=== PATIENT | male | born 1960 | race Hispanic/Latino ===

== ENCOUNTER 2017-02-18 16:47 | Emergency (ER) | payer MEDICARE, OTHER ==
[2017-02-18 17:18] VITALS: BMI 46.5
[2017-02-18 17:19] VITALS: BP 113/72; PULSE 88; RESP 18; TEMP 98.5; O2SAT 96
--- NOTE | 2017-02-18 17:48 | C.PDOC ---
History Of Present Illness 56 y/o male presents to ED with complaints of itchy rash on arm x 2 weeks. Notes its itchy, has not spread. No new lesions. No fever. Patient also concerned he got public lice from sexual partner. Notes he took 2 out uniform [employer] and reports itchy feeling worse at night. Notes he feels something crawling in the area. Patient denies penile discharge, testicular pain, sob, difficulty swallowing or any other complaints at this time. No known allergen. No medication taken. Time Seen by Provider: 02/18/17 17:27 Chief Complaint (Nursing): Abnormal Skin Integrity History Per: Patient History/Exam Limitations: no limitations Onset/Duration Of Symptoms: Days Current Symptoms Are (Timing): Still Present Quality Of Symptoms: Itching Past Medical History Reviewed: Historical Data, Nursing Documentation, Vital Signs Vital Signs: Last Vital Signs Temp 98.5 F 02/18/17 17:18 Pulse 88 02/18/17 17:18 Resp 18 02/18/17 17:18 BP 113/72 02/18/17 17:18 Pulse Ox 96 02/18/17 21:54 - Medical History PMH: Depression, Hypercholesterolemia Family History: States: Unknown Family Hx - Social History Hx Alcohol Use: No Hx Substance Use: No - Immunization History Hx Tetanus Toxoid Vaccination: No Hx Influenza Vaccination: Yes Hx Pneumococcal Vaccination: No Review Of Systems Except As Marked, All Systems Reviewed And Found Negative. Respiratory: Negative for: Shortness of Breath Genitourinary: Negative for: Penile Discharge, Penile Pain Musculoskeletal: Positive for: Hand Pain Skin: Positive for: Rash Physical Exam - Physical Exam Appears: Non-toxic, No Acute Distress Skin: Warm, Rash (Vesicles on erythematous base to bilateral forearms) Head: Atraumatic, Normacephalic Eye(s): bilateral: Normal Inspection, EOMI Nose: Normal Oral Mucosa: Moist Chest: Symmetrical Cardiovascular: Rhythm Regular Respiratory: Normal Breath Sounds, No Accessory Muscle Use Male Genital: No Testicular Tenderness, No Testicular Swelling, Other (No lice visualized. ) Neurological/Psych: Oriented x3, Normal Motor, Normal Sensation ED Course And Treatment O2 Sat by Pulse Oximetry: 96 (RA) Pulse Ox Interpretation: Normal Progress Note: Patient was instructed to follow up with physician/clinic in 1-2 days for further evaluation. Reevaluation Time: 17:30 Reassessment Condition: Improved Disposition - Disposition Disposition: HOME/ ROUTINE Disposition Time: 17:44 Condition: STABLE Additional Instructions: Follow up with primary medical doctor in 1-3 days without fail for further evaluation. Take medications as prescribed. Return to the emergency department at any time if symptoms persist or worsen. Prescriptions: DiphenhydrAMINE [Benadryl] 25 mg PO Q6 #20 cap Hydrocortisone 1% Cream [Cortizone 1% Cream] 1 appl TP TID #1 tube Permethrin 1% [Permethrin 1% Lotion] 1 ea EXT ONCE #2 bottle Instructions: Acute Rash (ED) - Clinical Impression Clinical Impression: Contact dermatitis, Pubic lice - Scribe Statement The provider has reviewed the documentation as recorded by the Chantelleibcarl Romero All medical record entries made by the Court were at my direction and personally dictated by me. I have reviewed the chart and agree that the record accurately reflects my personal performance of the history, physical exam, medical decision making, and the department course for this patient. I have also personally directed, reviewed, and agree with the discharge instructions and disposition.
== END 2017-02-18 17:54 | disposition home or self-care (01) ==
LOC: C.ER 16:47
DX: L25.9 Unspecified contact dermatitis, unspecified cause (principal); B85.3 Phthiriasis

== ENCOUNTER 2017-03-23 16:31 | Emergency (ER) | payer MEDICARE, OTHER ==
[2017-03-23 16:31] VITALS: BMI 46.5
[2017-03-23 16:44] VITALS: BP 142/92
--- NOTE | 2017-03-23 17:01 | C.PDOC ---
History Of Present Illness 56 y/o male presents to the ED for evaluation of an itchy rash to his bilateral forearms which began several days ago. Patient was evaluated in [facility] approx 1 month ago for similar symptoms, was discharged home with Hydrocortisone cream. He states he has had minimal relief from the cream and presents for further evaluation. Patient denies fever, chills, cough, shortness of breath, contact with known allergens (foods, new detergents) or possible contact with poison joycelyn. Time Seen by Provider: 03/23/17 16:47 Chief Complaint (Nursing): Abnormal Skin Integrity History Per: Patient History/Exam Limitations: no limitations Onset/Duration Of Symptoms: Days Current Symptoms Are (Timing): Still Present Location Of Injury: Right: Arm, Left: Arm Quality Of Symptoms: Itching Severity: Mild Additional History Per: Patient Past Medical History Reviewed: Historical Data, Nursing Documentation, Vital Signs Vital Signs: Last Vital Signs Temp 97.7 F 03/23/17 17:13 Pulse 69 03/23/17 17:13 Resp 18 03/23/17 17:13 BP 142/92 H 03/23/17 17:13 Pulse Ox 97 03/23/17 18:27 - Medical History PMH: Depression, Hypercholesterolemia Surgical History: No Surg Hx Family History: States: No Known Family Hx - Social History Hx Alcohol Use: No Hx Substance Use: No - Immunization History Hx Tetanus Toxoid Vaccination: No Hx Influenza Vaccination: Yes Hx Pneumococcal Vaccination: No Review Of Systems Except As Marked, All Systems Reviewed And Found Negative. Constitutional: Negative for: Fever, Chills Respiratory: Negative for: Cough, Shortness of Breath Skin: Positive for: Rash (itchy, to bilateral forearms ) Physical Exam - Physical Exam Appears: Well, Non-toxic, No Acute Distress Skin: Warm, Dry, Rash (b/l forearms: erythematous rash with small papules in a linear orientation. spares of interdigitary web spaces) Head: Normacephalic Eye(s): bilateral: Normal Inspection Oral Mucosa: Moist Tongue: Normal Appearing, No Swelling Lips: Normal Appearing, No Swelling Neck: Supple Cardiovascular: Rhythm Regular Respiratory: Normal Breath Sounds, No Rales, No Rhonchi, No Wheezing, Other ( speaking in full sentences) Extremity: Normal ROM, No Tenderness, Capillary Refill (< 2 seconds all digits ) , No Swelling Neurological/Psych: Oriented x3 Gait: Steady ED Course And Treatment O2 Sat by Pulse Oximetry: 97 (on RA) Pulse Ox Interpretation: Normal Progress Note: Patient received Benadryl PO, Pepcid PO, and Prednisone PO in ED. Reevaluation Time: 17:20 Reassessment Condition: Improved (On reassessment, patient is resting comfortably, showing no signs of respiratory distress and reports an improvement in his symptoms. Patient given Rxs for Benadryl PO, Permenthrin Cream (rash has appearance of possible scabies), and Prednisone PO. Patient instructed to follow up with dermatology aminata 1 week. He understands he should return to ED if symptoms worsen.) Disposition Counseled Patient/Family Regarding: Diagnosis, Need For Followup, Rx Given - Disposition Referrals: Silvino Denise MD [Staff Provider] - Disposition: HOME/ ROUTINE Disposition Time: 17:20 Condition: STABLE Additional Instructions: FOLLOW UP WITH YOUR DOCTOR IN 1-2 DAYS, AND WITH DERMATOLOGY WITHIN 1 WEEK USE MEDICATIONS DIRECTED RETURN TO ER IF SYMPTOMS WORSEN Prescriptions: DiphenhydrAMINE [Benadryl] 25 mg PO Q6 PRN #20 cap PRN Reason: Itching / Pruritus Permethrin 5% [Permethrin 5% Cream] 1 applic TOP ONCE #1 tube predniSONE [predniSONE Tab] 40 mg PO DAILY #6 tab Instructions: Dermatitis (ED) Forms: [employer] (Cameroonian) Print Language: KINYARWANDA - POA Present On Arrival: None - Clinical Impression Clinical Impression: Dermatitis - Scribe Statement The provider has reviewed the documentation as recorded by the Scribe (Milvia Heck) Provider Attestation: All medical record entries made by the Scribe were at my direction and personally dictated by me. I have reviewed the chart and agree that the record accurately reflects my personal performance of the history, physical exam, medical decision making, and the department course for this patient. I have also personally directed, reviewed, and agree with the discharge instructions and disposition.
[2017-03-23 17:14] VITALS: PULSE 69; RESP 18; TEMP 97.7
[2017-03-23 18:11] VITALS: O2SAT 97
== END 2017-03-23 17:11 | disposition home or self-care (01) ==
LOC: C.ER 16:31
DX: L30.9 Dermatitis, unspecified (principal)

== ENCOUNTER 2017-06-10 15:01 | Emergency (ER) | payer MEDICARE, OTHER ==
[2017-06-10 15:01] VITALS: BMI 40.0
[2017-06-10 15:09] VITALS: BP 139/84; PULSE 80; RESP 20; TEMP 97.9; O2SAT 97
--- NOTE | 2017-06-10 15:53 | C.PDOC ---
History Of Present Illness 56 yo male come in for evaluation of " crabs in my private area". pt reports, noted some groin irritation associated with itchiness, " pinching pain, feels like bites" for past 3 weeks. Otherwise, pt denies any other active complaint. denies fever, chills, UTI sx, scrotal pain or swelling. Admits, similar sx in past " was given some cream with improvement in sx". Ambulate to ED for evaluation, not in any apparent distress. Time Seen by Provider: 06/10/17 15:39 Chief Complaint (Nursing): Male Genitourinary History Per: Patient Past Medical History Reviewed: Historical Data, Nursing Documentation, Vital Signs Vital Signs: Last Vital Signs Temp 97.9 F 06/10/17 15:05 Pulse 80 06/10/17 15:05 Resp 20 06/10/17 15:05 BP 139/84 06/10/17 15:05 Pulse Ox 97 06/10/17 16:04 - Medical History PMH: Bipolar Disorder, Depression, Diabetes, Hypercholesterolemia Denies: Chronic Kidney Disease Family History: States: Unknown Family Hx - Social History Hx Alcohol Use: No Hx Substance Use: Yes (nicotine addiction) - Immunization History Hx Tetanus Toxoid Vaccination: No Hx Influenza Vaccination: Yes Hx Pneumococcal Vaccination: No Review Of Systems Except As Marked, All Systems Reviewed And Found Negative. Constitutional: Negative for: Fever, Chills Eyes: Negative for: Vision Change ENT: Negative for: Throat Pain, Throat Swelling Cardiovascular: Negative for: Chest Pain Respiratory: Negative for: Cough, Shortness of Breath, Wheezing Gastrointestinal: Negative for: Nausea, Vomiting, Abdominal Pain, Diarrhea Genitourinary: Negative for: Dysuria, Frequency, Incontinence Musculoskeletal: Negative for: Neck Pain Skin: Positive for: Rash Neurological: Negative for: Weakness, Numbness Physical Exam - Physical Exam Appears: Well, Non-toxic, No Acute Distress Skin: Normal Color, Warm, Dry Head: Normacephalic Eye(s): bilateral: PERRL Nose: No Flaring, No Discharge Oral Mucosa: Moist, No Drooling Tongue: Normal Appearing Lips: Normal Appearing Throat: No Erythema, No Exudate Neck: Supple Cardiovascular: Rhythm Regular Respiratory: No Decreased Breath Sounds, No Accessory Muscle Use, No Stridor, No Wheezing Gastrointestinal/Abdominal: Soft, No Tenderness, No Distention, No Guarding Back: No CVA Tenderness Male Genital: No Testicular Tenderness, No Testicular Swelling, No Scrotal Swelling, Other (mild skin irritation/trace erythema noted Left groin are extend down to Left scrotum. No obvious parasityes noted, no rash, no cellulitis.) Extremity: No Pedal Edema Neurological/Psych: Oriented x3, Normal Speech ED Course And Treatment O2 Sat by Pulse Oximetry: 97 Pulse Ox Interpretation: Normal Progress Note: On re-evaluation, pt is afebrile, hemodynamicaly stable. NOn- toxic. FSBS 147. ABd: benign, (-) guarding, (-) rebound. Back: (-) CVA tenderness. : exam c/w mild scrotal irritation, No cellulitis, no testicular pain or swelling, no lesion noted. Pt advised. ref. to F/u with PMD, Derm in 2 -3 days for re-eval. return to ED if any worsening or new changes. Disposition Counseled Patient/Family Regarding: Diagnosis, Need For Followup, Rx Given - Disposition Referrals: Silvino Denise MD [Staff Provider] - Disposition: HOME/ ROUTINE Disposition Time: 15:40 Condition: STABLE Additional Instructions: Apply cream as prescribed Clean area, change underwear daily Follow up with PMD, Dermatology in 2-3 days for re-evaluation. Return to ED if any worsening or new changes. Prescriptions: Clotrimazole 1% Cream [Lotrimin 1%] 1 appl TP DAILY #1 cre Permethrin 1% [Permethrin 1% Lotion] 1 ea EXT BID #1 bottle Instructions: Pubic Lice (ED), Jock Itch (ED) Forms: [employer] (Luxembourgish) - Clinical Impression Clinical Impression: Pubic lice, Tinea cruris
== END 2017-06-10 16:13 | disposition home or self-care (01) ==
LOC: C.ER 15:01
DX: B35.6 Tinea cruris (principal); B85.3 Phthiriasis; E11.9 Type 2 diabetes mellitus without complications

== ENCOUNTER 2017-12-25 11:59 | Emergency (ER) | payer MEDICARE ==
[2017-12-25 11:59] VITALS: BMI 40.0
[2017-12-25 12:19] VITALS: BP 117/79; PULSE 71; TEMP 98.1; O2SAT 95
--- NOTE | 2017-12-25 13:34 | C.PDOC ---
History Of Present Illness 57 y/o male comes in for evaluation of pruritic rash to bilateral forearms, developing for the past few weeks. Patient admits to similar symptoms in the past. States he always has this rash in the summer. Otherwise denies any fever , recent new medication, drooling, throat swelling or tightness, chest pain, SOB , or wheezing. Time Seen by Provider: 12/25/17 12:39 Chief Complaint (Nursing): Abnormal Skin Integrity History Per: Patient History/Exam Limitations: no limitations Onset/Duration Of Symptoms: Days Current Symptoms Are (Timing): Still Present Past Medical History Reviewed: Historical Data, Nursing Documentation, Vital Signs Vital Signs: Last Vital Signs Temp 98.1 F 12/25/17 12:17 Pulse 71 12/25/17 12:17 Resp 20 12/25/17 13:59 BP 117/79 12/25/17 12:17 Pulse Ox 95 12/25/17 13:44 - Medical History PMH: Bipolar Disorder, Depression, Diabetes, Hypercholesterolemia Denies: Chronic Kidney Disease Family History: States: Unknown Family Hx - Social History Hx Alcohol Use: No Hx Substance Use: Yes (nicotine addiction) - Immunization History Hx Tetanus Toxoid Vaccination: No Hx Influenza Vaccination: Yes Hx Pneumococcal Vaccination: No Review Of Systems Except As Marked, All Systems Reviewed And Found Negative. Constitutional: Negative for: Fever ENT: Negative for: Throat Swelling Cardiovascular: Negative for: Chest Pain Respiratory: Negative for: Shortness of Breath, Wheezing Skin: Positive for: Rash Physical Exam - Physical Exam Appears: Well, Non-toxic, No Acute Distress Skin: Warm, Dry, Rash (macular vesicular erythematous rash to bilateral forearms , with no cellulitis or edema) Head: Atraumatic, Normacephalic Eye(s): bilateral: Normal Inspection Nose: Normal Oral Mucosa: Moist Neck: Normal ROM Chest: Symmetrical Respiratory: No Accessory Muscle Use, Other (No respiratory distress) Neurological/Psych: Oriented x3, Normal Speech, Normal Motor, Normal Sensation ED Course And Treatment O2 Sat by Pulse Oximetry: 95 (RA) Pulse Ox Interpretation: Normal Progress Note: On re-evaluation, pt is afebrile, hemodynamicaly stable. NOn- toxic. Tolerate Po well in ED. PuslEOx 95% RA. ENT: no acute findings. uvula midline, no edema. neck: Supple, (-) meningeal sign. Lungs: CTA B/L, BS equal B/L. Neuorlogicaly intact. Exam c/w contact dermatitis. Pt advised on course of ds. ref. to f/u with PMD, Dermatology in 2-3 days for re-eval. return if any new changes. Disposition Counseled Patient/Family Regarding: Diagnosis, Need For Followup - Disposition Referrals: [facility] [Outside] Disposition: HOME/ ROUTINE Disposition Time: 13:32 Condition: STABLE Additional Instructions: Take medication as prescribed Follow up with PMD, Dermatology in 2-3 days for re-evaluation. return if any new changes. Prescriptions: DiphenhydrAMINE [Benadryl] 25 mg PO BID #10 cap Famotidine [Pepcid] 20 mg PO BID #10 tab Prednisone [Deltasone] 40 mg PO DAILY #6 tablet Instructions: Contact Dermatitis (DC) Forms: [employer] (Bulgarian) - POA Present On Arrival: None - Clinical Impression Clinical Impression: Contact dermatitis - PA / CLAIM REVIEW MEDICAL DIRECTOR / Resident Statement MD/DO has reviewed & agrees with the documentation as recorded. - Scribe Statement The provider has reviewed the documentation as recorded by the Scribe (Komal Hatfield) All medical record entries made by the Scribe were at my direction and personally dictated by me. I have reviewed the chart and agree that the record accurately reflects my personal performance of the history, physical exam, medical decision making, and the department course for this patient. I have also personally directed, reviewed, and agree with the discharge instructions and disposition.
[2017-12-25 14:00] VITALS: RESP 20
== END 2017-12-25 13:59 | disposition home or self-care (01) ==
LOC: C.ER 11:59
DX: L25.9 Unspecified contact dermatitis, unspecified cause (principal)

== ENCOUNTER 2018-04-20 15:51 | Emergency (ER) | payer MEDICARE, MEDICAID ==
[2018-04-20 15:51] VITALS: BMI 40.0
[2018-04-20 16:11] VITALS: RESP 18
[2018-04-20] MEDS ORDERED: Albuterol-Ipratrop 3 mg / 0.5 (3 ml) UD INH STA (17:11)
--- NOTE | 2018-04-20 17:26 | RAD ---
HISTORY: Shortness of breath COMPARISON: 11/06/2017. TECHNIQUE: Chest PA and lateral FINDINGS: LINES AND TUBES: None. LUNG AND PLEURA: The lungs are well inflated and clear. There is a stable calcified nodule in the left lower lobe. No pleural effusion or pneumothorax. HEART AND MEDIASTINUM: The heart is not enlarged. The hilar and mediastinal contours are within normal limits. SKELETAL STRUCTURES: The bony structures are within normal limits for the patient's age. VISUALIZED UPPER ABDOMEN: Normal. OTHER FINDINGS: None. IMPRESSION: No active pulmonary disease.
[2018-04-20] MEDS ORDERED: Albuterol-Ipratrop 3 mg / 0.5 (3 ml) UD ONE (17:30)
[2018-04-20 17:57] LABS: BASO # 0.1 K/uL (0.0-0.2); EOS # 0.3 K/uL (0.0-0.7); EOS % 2.5 % (0.0-4.0); HEMOGLOBIN 15.5 g/dL (12.0-18.0); LYMPH % 26.1 % (20.0-40.0); MEAN CELL VOLUME 85.2 fL (80.0-94.0); MEAN CORPUSCULAR HEMOGLOBIN 28.7 pg (27.0-31.0); MEAN CORPUSCULAR HGB CONC 33.7 g/dL (33.0-37.0); MEAN PLATELET VOLUME 7.4 fL (7.2-11.7); MONO # 0.7 K/uL (0.0-0.8); MONO % 6.4 % (0.0-10.0); NEUT # 7.4 K/uL (1.8-7.0); NRBC % 0.1 % (0.0-2.0); RBC 5.39 Mil/uL (4.40-5.90); RED CELL DISTRIBUTION WIDTH 12.7 % (11.5-14.5); WHITE BLOOD COUNT 11.6 K/uL (4.8-10.8)
[2018-04-20 18:08] LABS: ALB/GLOB RATIO 1.4 (1.0-2.1); ALBUMIN 4.4 g/dL (3.5-5.0); ALT/SGPT 40 U/L (21-72); AST/SGOT 25 U/L (17-59); BLOOD UREA NITROGEN 14 mg/dL (9-20); CALCIUM 9.6 mg/dl (8.6-10.4); GFR NON-AFRICAN AMERICAN > 60
[2018-04-20 18:42] VITALS: BP 117/64; PULSE 60; TEMP 98.6; O2SAT 98
--- NOTE | 2018-04-20 18:59 | C.PDOC ---
History Of Present Illness 57 year old obese male with a history of diabetes and COPD presents to the emergency department with complaints of two days of cough with yellow sputum, sore throat, and sweating with subjective fever. Patient states that he "doesn't feel well" overall. Patient denies chest pain, shortness of breath. Patient is a poor historian. Time Seen by Provider: 04/20/18 16:26 Chief Complaint (Nursing): Cough, Cold, Congestion History Per: Patient History/Exam Limitations: other Onset/Duration Of Symptoms: Days (2) Associated Symptoms: Fever, Sore Throat, Cough, Sputum (yellow). denies: Other (chest pain, shortness of breath) Past Medical History Reviewed: Historical Data, Nursing Documentation, Vital Signs Vital Signs: Last Vital Signs Temp 98.6 F 04/20/18 18:41 Pulse 60 04/20/18 18:41 Resp 18 04/20/18 18:41 BP 117/64 04/20/18 18:41 Pulse Ox 98 04/23/18 00:55 - Medical History PMH: Bipolar Disorder, Depression, Diabetes, Hypercholesterolemia Denies: Chronic Kidney Disease Surgical History: No Surg Hx Family History: States: No Known Family Hx - Social History Hx Alcohol Use: No Hx Substance Use: No - Immunization History Hx Tetanus Toxoid Vaccination: Yes Hx Influenza Vaccination: Yes Hx Pneumococcal Vaccination: Yes Review Of Systems Constitutional: Positive for: Fever ENT: Positive for: Throat Pain. Negative for: Ear Pain Cardiovascular: Negative for: Chest Pain Respiratory: Positive for: Cough. Negative for: Shortness of Breath Gastrointestinal: Negative for: Vomiting, Abdominal Pain Skin: Negative for: Rash Neurological: Negative for: Weakness, Numbness Physical Exam - Physical Exam Appears: Non-toxic, No Acute Distress, Other (flat affect) Skin: Warm, Dry Head: Atraumatic, Normacephalic Eye(s): bilateral: Normal Inspection Oral Mucosa: Moist Throat: Normal, No Erythema Neck: Normal, Supple Lymphatic: No Adenopathy Chest: Symmetrical, No Tenderness Cardiovascular: Rhythm Regular, No Murmur Respiratory: Decreased Breath Sounds (coarse breath sounds B/L), No Rales, No Rhonchi, No Wheezing Gastrointestinal/Abdominal: Bowel Sounds, Soft, No Tenderness, No Distention, No Guarding, No Rebound Neurological/Psych: Oriented x3, Normal Speech, Normal Cognition ED Course And Treatment - Laboratory Results Result Diagrams: 04/20/18 17:47 04/20/18 17:47 ECG Rhythm: Sinus Bradycardia Interpretation Of ECG: Sinus bradycardia at 57 bpm. 1st degree AV block. Low voltage QBS. Borderline EKG. Rate From EC O2 Sat by Pulse Oximetry: 98 (RA) Pulse Ox Interpretation: Normal Progress Note: Plan: EKG. CMP. CBC. CXR. Duoneb 3ml INH. Influenza A B Medical Decision Making Medical Decision Making: pt feeling better. lungs cta b/l, pt sts he has advair at home, no albuterol, will d/c with albuterol mdi and zpak. labs nl, ekg and cxr normal. Disposition Counseled Patient/Family Regarding: Studies Performed, Diagnosis, Need For Followup, Rx Given - Disposition Referrals: Silvino Denise MD [Staff Provider] - Disposition: HOME/ ROUTINE Disposition Time: 19:15 Condition: GOOD Additional Instructions: Please take antibiotics as prescribed., Use inhaler 2 puffs every 6 hours for cough. Tylenol for pain or fever. Increased bed rest. Follow up with Dr Denise in 1-2 days, Return to ER for any worse symptoms. Prescriptions: Acetaminophen [Tylenol 325mg tab] 650 mg PO Q6 #30 tab Albuterol HFA [Ventolin HFA 90 mcg/actuation (8 g)] 2 puff IH Q6 #1 inhaler Azithromycin [Z-Danny] 250 mg PO DAILY #6 tab Instructions: Upper Respiratory Infection (ED) Forms: [employer] ([place] Citizen), General Discharge Instructions - Clinical Impression Clinical Impression: Upper respiratory infection - PA / WATER SKI ASSEMBLER / Resident Statement MD/DO has reviewed & agrees with the documentation as recorded. - Scribe Statement The provider has reviewed the documentation as recorded by the Scribe (Walter Springer) All medical record entries made by the Scribe were at my direction and personally dictated by me. I have reviewed the chart and agree that the record accurately reflects my personal performance of the history, physical exam, medical decision making, and the department course for this patient. I have also personally directed, reviewed, and agree with the discharge instructions and disposition.
--- NOTE | 2018-04-21 19:31 | CARD ---
APPROVED REPORT Date of service: 04/20/2018 EKG Measurement Heart [id number] <Conclusion> Sinus bradycardia with 1st degree AV block Low voltage QRS Borderline ECG
== END 2018-04-20 19:33 | disposition home or self-care (01) ==
LOC: C.ER 15:51
DX: J06.9 Acute upper respiratory infection, unspecified (principal)

== ENCOUNTER 2018-07-08 13:16 | Emergency (ER) | payer MEDICAID, MEDICARE ==
[2018-07-08 13:42] VITALS: BMI 45.3
[2018-07-08 13:46] VITALS: RESP 18
--- NOTE | 2018-07-08 15:10 | C.PDOC ---
History Of Present Illness 57 year old male presents to the ED for evaluation intermittent episodes of epistaxis in right nostril for the past two days. Patient states he blew his nose with force a couple days prior to onset of symptoms. He states the bleeding usually resolves after he packs his nostril, and symptoms have currently improved. Patient takes baby Aspirin daily. He denies fever, chills, headache, dizziness, blood disorders or blood thinner use. Time Seen by Provider: 07/08/18 14:51 Chief Complaint (Nursing): ENT Problem History Per: Patient History/Exam Limitations: None Onset/Duration Of Symptoms: Hrs Current Symptoms Are (Timing): Still Present Past Medical History Reviewed: Historical Data, Nursing Documentation, Vital Signs Vital Signs: Last Vital Signs Temp 98.2 F 07/08/18 13:42 Pulse 79 07/08/18 13:42 Resp 18 07/08/18 13:42 BP 122/82 07/08/18 13:42 Pulse Ox 97 07/08/18 13:42 - Medical History PMH: Bipolar Disorder, Depression, Diabetes, HTN, Hypercholesterolemia Denies: Chronic Kidney Disease Surgical History: Endoscopy Family History: States: Unknown Family Hx - Social History Hx Alcohol Use: No Hx Substance Use: No - Immunization History Hx Tetanus Toxoid Vaccination: Yes Hx Influenza Vaccination: Yes Hx Pneumococcal Vaccination: Yes Review Of Systems Constitutional: Negative for: Fever, Chills ENT: Positive for: Other (epistaxis, right nostril ) Neurological: Negative for: Headache Physical Exam - Physical Exam Appears: Well, Non-toxic, No Acute Distress Skin: Normal Color, Warm, Dry Head: Atraumatic, Normacephalic Eye(s): bilateral: Normal Inspection Nose: No Flaring, No Septal Hematoma, Other (visible bleeding site in right nare with no active bleeding. left nare unremarkable ) Oral Mucosa: Moist Neck: Normal ROM Chest: Symmetrical Neurological/Psych: Oriented x3, Normal Speech, Normal Cognition ED Course And Treatment O2 Sat by Pulse Oximetry: 97 (on RA) Pulse Ox Interpretation: Normal Medical Decision Making Medical Decision Making: Impression: 57 year old male with intermittent epistaxis in right nare. No active bleeding. Patient is resting comfortably and is showing no signs of distress. Patient does not have active bleeding at this time and is stable for discharge. Patient is advised to follow up with his PMD within 1-2 days for further evaluation. He is advised to return to the ED if symptoms persist or worsen. Disposition Counseled Patient/Family Regarding: Diagnosis, Need For Followup - Disposition Referrals: Avi Macias MD [Staff Provider] - Disposition: HOME/ ROUTINE Disposition Time: 15:09 Condition: STABLE Additional Instructions: Use nasal spray for 3 days and refrain from using Aspirin Prescriptions: Oxymetazoline 0.05% [Oxymetazoline HCl 30 Ml] 1 ml NS DAILY 3 Days bottle Instructions: Nosebleeds (DC) Forms: [employer] (Marshallese) - POA Present On Arrival: None - Clinical Impression Clinical Impression: Epistaxis - PA / GLASS CUTTER / Resident Statement MD/DO has reviewed & agrees with the documentation as recorded. - Scribe Statement The provider has reviewed the documentation as recorded by the Scribe (Milvia Heck) All medical record entries made by the Scribe were at my direction and personally dictated by me. I have reviewed the chart and agree that the record accurately reflects my personal performance of the history, physical exam, medical decision making, and the department course for this patient. I have also personally directed, reviewed, and agree with the discharge instructions and disposition.
[2018-07-08 15:37] VITALS: BP 128/78; PULSE 62; TEMP 97.6
[2018-07-08 16:05] VITALS: O2SAT 97
== END 2018-07-08 15:45 | disposition home or self-care (01) ==
LOC: C.ER 13:16
DX: R04.0 Epistaxis (principal)